=== PATIENT | male | born 1985 | race African-American/Black ===

== ENCOUNTER 2023-04-18 13:31 | Emergency (ER) | payer OTHER ==
[~2023-04-18] VITALS: Ht 175.3 cm; Wt 81.6 kg
[2023-04-18 13:58] VITALS: BP 154/79; PULSE 82; RESP 16; TEMP 98; O2SAT 100
[2023-04-18 14:47] VITALS: BP 154/79; PULSE 82; RESP 16; TEMP 98; O2SAT 100
== END 2023-04-18 14:49 ==
LOC: MED 13:31
DX: I10 Essential (primary) hypertension (principal); Z79.899 Other long term (current) drug therapy
CPT/HCPCS: 99283